=== PATIENT | male | born 1930 | race Caucasian/White ===

== ENCOUNTER → 2018-02-11 | Day surgery (SDC) | payer MEDICARE, OTHER ==
[~2018-02-11] MED LIST: ACETAMINOPHEN 1000 MG/100 ML 100 ML IV ONE; BUPIVACAINE/EPINEPHRINE 0.5% PF 30 ML VIAL ONE; DOXY150C OR; LIDOCAINE 1%/EPINEPHrine 1:200,000 PF SOLN 30 ML VIAL ONE; MIDAZOLAM HCL 2 MG/2 ML VIAL ONE; NEOMYCIN/POLYMYXIN/BACITRACIN OINT 15 GM TUBE ONE; VITA100T15 PO
--- NOTE | 2018-02-11 11:20 | TN ---
cc: Jerome Lockwood MD [facility] DATE OF SURGERY: 02/11/2018 PREOPERATIVE DIAGNOSES: 1. Malignant melanoma in situ, right shoulder. 2. Skin cancer, right posterior neck. POSTOPERATIVE DIAGNOSES: 1. Malignant melanoma in situ, right shoulder. 2. Skin cancer, right posterior neck. 3. Pending permanent section. PROCEDURE PERFORMED: 1. Wide excision of skin cancer, right posterior neck with a 4 x 2 cm elliptical incision, double layer closure. 2. Wide excision of malignant melanoma in situ with amelanotic area of the skin associated with this malignant melanoma in situ, 8 x 4 cm, double layer closure. ANESTHESIA: TIVA. SURGEON: Jerome Lockwood MD INDICATION: This is a pleasant 87-year-old gentleman who had this malignant melanoma in situ in the right shoulder. He had an amelanotic area around it. There was some concern this may be an amelanotic melanoma and per the chemical process analyst's request, we will incorporate this amelanotic area with the excision to be assured this is excised. The other area in the posterior neck had been previously marked and was excised as well. DESCRIPTION OF PROCEDURE: The patient was brought to the operating room and placed in supine position. After achieving anesthesia, his right posterior neck and right shoulder were prepped with Betadine. A timeout was done. They had both previously been marked in the holding area, actually marked by the chemical process analyst a couple days before to be assured we were excising the area in question. After prepping and draping, I made a 4 x 2 cm elliptical incision around the right posterior neck lesion. This was completely excised, marked with a stitch at the 12 o'clock position for orientation for the pathologist. I irrigated the deep layers and then reapproximated with a 2-0 Vicryl and the skin with a 3-0 nylon interrupted. We then turned our attention to the right posterior shoulder. The area in question was anesthetized with Marcaine solution and an 8 x 4 cm elliptical incision was then made to completely excise the amelanotic area with the melanoma in situ and somewhat off to the lateral center. I did put a Vicryl suture on the previous shave biopsy area for pathological identification of the area that was previously biopsied. The specimen itself was labeled at the 12 o'clock position for orientation for the pathologist. The specimen was removed. We then created superior and inferior flaps to rotate the tissue, both the inferior flap superiorly and the superior flap inferiorly to reapproximate tissue in a double layer with a 2-0 Vicryl in the deep layer and a 3-0 nylon on the skin layer. Sterile bandage applied. The patient tolerated the procedure well. No immediate postop complications. MD DENIS Andrews/NILAY , 10:52 AM , 11:19 AM
== END | disposition home or self-care (01) ==
LOC: ESDC 08:16
PROVIDERS: ATTEND Surgery
DX: D03.61 Melanoma in situ of right upper limb, including shoulder (principal); C44.41 Basal cell carcinoma of skin of scalp and neck
CPT/HCPCS: 00300; 00400; 11606; 11624; 12032; 12042; 88305; J0131; J2250; J3010